=== PATIENT | male | born 1970 | race Two or more races ===

== ENCOUNTER 2022-02-01 13:29 | Emergency (ER) | payer MEDICAID ==
[~2022-02-01] VITALS: Ht 170.2 cm; Wt 79.4 kg
[2022-02-01] MEDS ORDERED: IV NS 0.9% 1,000 ML BAG IV ONE (15:00)
[2022-02-01] MEDS ORDERED: LORAZEPAM 1 MG TABLET PO ONE (15:00)
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
--- NOTE | 2022-02-01 15:00 | NUR ---
URINE COLLECTED AND SENT TO LAB
[2022-02-01 15:28] LABS: BILIRUBIN,URINE NEGATIVE (NEGATIVE); COLOR,URINE YELLOW (YELLOW); LEUKOCYTE ESTERASE ,URINE NEGATIVE (NEGATIVE); NITRITE, URINE NEGATIVE (NEGATIVE); PROTEIN,URINE NEGATIVE (NEGATIVE); UGLUCOSE NEGATIVE (NEGATIVE)
[2022-02-01] MEDS ORDERED: LORAZEPAM 0.5 MG TABLET ONE (15:35)
[2022-02-01 15:39] LABS: BASOPHILS # (AUTO) 0.1 K/uL (0.0-0.2); BASOPHILS % (AUTO) 1.6 % (0.0-2.0); EOSINOPHILS % (AUTO) 0.1 % (0.0-6.0); HEMATOCRIT 30 % (39-51); HEMOGLOBIN 10.1 g/dL (13.5-17.5); LYMPHOCYTES # (AUTO) 1.5 K/uL (0.8-4.8); LYMPHOCYTES % (AUTO) 18.7 % (20.0-44.0); MEAN CORPUSCULAR HGB CONC 34 g/dl (31.0-36.0); MEAN CORPUSCULAR VOLUME 90 fL (80-96); MONOCYTES # (AUTO) 1.1 K/uL (0.1-1.30); MONOCYTES % (AUTO) 13.8 % (2.0-12.0); NEUTROPHILS # (AUTO) 5.1 K/uL (1.8-8.9); NEUTROPHILS % (AUTO) 65.8 % (43.0-81.0); PLATELET COUNT (AUTO) 232 K/uL (150-450); RED BLOOD CELL COUNT(AUTO) 3.33 MIL/uL (4.5-6.0); WHITE BLOOD COUNT (AUTO) 7.8 K/uL (4.3-11.0)
--- NOTE | 2022-02-01 15:41 | NUR ---
Sylvester VOGEL #18 RUNNING DEBBY 1L
[2022-02-01 16:02] LABS: CARBON DIOXIDE 25 mmol/L (21-32); CHLORIDE 95 mmol/L (98-107); GLUCOSE 116 mg/dL (74-106); POTASSIUM 3.2 mmol/L (3.5-5.1); SODIUM SERUM 131 mmol/L (136-145); UREA NITROGEN, BLOOD 12 mg/dL (7-18)
[2022-02-01 16:07] LABS: CALCIUM, SERUM 5.3 mg/dL (8.5-10.1)
[2022-02-01 16:08] LABS: ALANINE AMINOTRANSFERASE 106 U/L (12-78); ALBUMIN 2.9 g/dL (3.4-5.0); ALCOHOL, BLOOD < 3 mg/dL (0-0); ALKALINE PHOSPHATASE 210 U/L (46-116); ASPARTATE AMINOTRANSFERASE 163 U/L (15-37); BILIRUBIN,DIRECT 1.1 mg/dL (0.0-0.2); BILIRUBIN,TOTAL 3.3 mg/dL (0.2-1.0); TOTAL PROTEIN, SERUM 7.6 g/dL (6.4-8.2)
[2022-02-01 16:16] LABS: THYROID STIMULATING HORMONE 3.627 uIU/mL (0.358-3.74)
[2022-02-01] MEDS ORDERED: POTASSIUM CHLORIDE 20 MEQ TAB.PRT.SR PO ONE ×2 (16:27→16:30)
[2022-02-01] MEDS ORDERED: CALCIUM CHLORIDE 1,000 MG/10 ML DISP.SYRIN ONE (16:27)
[2022-02-01] MEDS ORDERED: CALCIUM CHLORIDE 1,000 MG/10 ML DISP.SYRIN IV ONE (16:30)
--- NOTE | 2022-02-01 16:45 | NUR ---
PROVIDED PT WITH FOOD AND WATER. PT RESTING COMFORTABLE
[2022-02-01] MEDS ORDERED: Magnesium 1GM/D5W 100ML PREMIX 100 ML IV ONE ×2 (17:30→18:26)
[2022-02-01] MEDS: Magnesium 1GM/D5W 100ML PREMIX 100 ML IV SCH ×2 (17:32→18:00)
--- NOTE | 2022-02-01 19:40 | NUR ---
PT DEPARTED. IV REMOVED. SENT HOME WITH FOOD, CLOTHING, AND DISCHARGE PAPERS.
[2022-02-01 19:53] VITALS: BP 122/73
== END 2022-02-01 19:53 | disposition home or self-care (01) ==
LOC: ER 14:12
DX: S00.83XA Contusion of other part of head, initial encounter (principal); S00.511A Abrasion of lip, initial encounter; F10.239 Alcohol dependence with withdrawal, unspecified; E87.6 Hypokalemia; E83.51 Hypocalcemia; E83.42 Hypomagnesemia; W18.09XA Striking against other object with subsequent fall, initial encounter; Y93.89 Activity, other specified; Y92.89 Other specified places as the place of occurrence of the external cause; Y99.8 Other external cause status; Y90.0 Blood alcohol level of less than 20 mg/100 ml
CPT/HCPCS: 36415; 70450; 70486; 71045; 73564; 80048; 80076; 80307; 80320; 81003; 83735; 84443; 85025; 85730; 93005; 96361; 96365; 96375; 99285; J3475 ×2; J3490; J7030; G0480

== ENCOUNTER 2022-05-17 11:58 | Emergency (ER) | payer MEDICAID ==
[~2022-05-17] VITALS: Ht 160 cm; Wt 56.7 kg
[2022-05-17 11:58] VITALS: BP 106/63
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
[2022-05-17] MEDS ORDERED: NAPR-1192 PO (12:51)
--- NOTE | 2022-05-17 13:12 | NUR ---
Patient given written and verbal discharge instructions. Patient verbalizes understanding of instructions. Patient is ambulatory with steady gait. Refuses offer of penitentiary placement. Patient given list of available shelters in surrounding area.
== END 2022-05-17 13:15 | disposition home or self-care (01) ==
LOC: ER 11:59 → EDBD 11:59 → ER 13:15
DX: S62.617A Displaced fracture of proximal phalanx of left little finger, initial encounter for closed fracture (principal); Z79.1 Long term (current) use of non-steroidal anti-inflammatories (NSAID); W21.19XA Struck by other bat, racquet or club, initial encounter; Y93.89 Activity, other specified; Y92.89 Other specified places as the place of occurrence of the external cause; Y99.8 Other external cause status
CPT/HCPCS: 71100-TC; 73130-TC